=== PATIENT | female | born 1985 | race African-American/Black ===

== ENCOUNTER 2017-05-04 21:25 | Emergency (ER) | payer MEDICAID | END 2017-05-04 21:50 | disposition left against medical advice (07) | LOC: ER 21:25 | DX: Z53.21 Procedure and treatment not carried out due to patient leaving prior to being seen by health care provider (principal) ==

== ENCOUNTER 2017-05-14 23:25 | Emergency (ER) | payer MEDICAID ==
[~2017-05-14] VITALS: Ht 180.3 cm; Wt 81.0 kg
[2017-05-14 23:31] VITALS: BP 103/62
== END 2017-05-15 07:45 | disposition left against medical advice (07) ==
LOC: ER 05-15 06:34
DX: O46.90 Antepartum hemorrhage, unspecified, unspecified trimester (principal); Z3A.00 Weeks of gestation of pregnancy not specified; Z53.21 Procedure and treatment not carried out due to patient leaving prior to being seen by health care provider